=== PATIENT | female | born 1985 | race Caucasian/White ===

== ENCOUNTER 2017-02-21 13:53 | Emergency (ER) | payer SELFPAY ==
--- NOTE | 2017-04-16 22:37 | ER ---
ADMIT: 02/21/2017 RM/LOC: ER [facility] MR#: [id number] [address] [facility] [address] [place], [place] [id number] [facility] [address] [place] [address] Emergency Room Report SEX: F AGE: 31 : 1985 DATE: 02/21/2017 ADDENDUM: This patient comes to the ER because she states she is withdrawing from Dilaudid and methadone. She has not had it for 2 days and she is doing a lot of vomiting. She is traveling from out of town and she takes Dilaudid and methadone for chronic pain caused by STDs. PAST MEDICAL HISTORY: STDs, diabetes, chlamydia, and . MEDICATIONS: Dilaudid and methadone. ALLERGIES: NONE. SOCIAL HISTORY: She smokes pack of cigarettes a day. Currently unemployed. She is not from the area. PHYSICAL EXAMINATION: GENERAL: This is an alert 31-year-old white female. VITAL SIGNS: Temperature is 98.1, pulse 87, respirations 16, blood pressure is 130/70, and pulse ox 100% on room air. HEENT: Eyes, clear. Head, normocephalic. Posterior pharynx is benign. Oral mucosa is dry. Nares are clear. NECK: Supple. HEART: Regular rhythm. LUNGS: Clear to auscultation. ABDOMEN: Soft. She is tender right above the pubic symphysis, which she states is a normal type pain for her. She also has pain in her upper arms, which she thinks is because of the withdrawals. EMERGENCY ROOM COURSE: The patient was given Zofran, Ativan 2 mg IM, and Toradol 60 mg IM. I did not refill any of her narcotic medication. She is to follow up with her primary. Please see my T-sheet. FADUMO Renteria / Jhoan Morton MD / lalo JOB #: [id number] CC: Jhoan Morton MD, Attending Physician Lizandro Hughes MD, Family Physician
== END 2017-02-21 15:45 | disposition home or self-care (01) ==
LOC: ER 13:53
DX: F11.23 Opioid dependence with withdrawal (principal); G89.29 Other chronic pain